=== PATIENT | male | born 1975 | race Caucasian/White ===

== ENCOUNTER 2023-01-18 16:38 | Outpatient (OUT) | payer OTHER, SELFPAY ==
--- NOTE | 2023-01-18 16:40 | XR_ITS ---
The [address] [address] Patient Name: DG REAGAN MRN: [id number] date: 1975 Sex: M Assigned Patient Location: [facility] Current Patient Location: Accession/Order Number: [id number] Exam Date: 01/18/2023 16:48 Report Date: 01/21/2023 07:28 At the request of: RACHEL JIMÉNEZ Procedure: XR knee NOHEMI 4V EXAMINATION: XR knee NOHEMI 4V HISTORY: M 25.562 , M 25.561 BILATERAL KNEE PAIN COMPARISON: No relevant comparison available. FINDINGS: RIGHT FINDINGS: BONES: Normal. No significant arthropathy or acute abnormality. SOFT TISSUES: Negative. No visible soft tissue swelling. OTHER: Negative. LEFT FINDINGS: BONES: Normal. No significant arthropathy or acute abnormality. SOFT TISSUES: Negative. No visible soft tissue swelling. OTHER: Negative. XR/XR knee NOHEMI 4V IMPRESSION: RIGHT CONCLUSION: No acute abnormality LEFT CONCLUSION: No acute abnormality Electronically authenticated by: MIKE PEREZ Date: 01/21/2023 07:28
== END 2023-01-18 16:39 | disposition home or self-care (01) ==
LOC: RAD 16:38
PROVIDERS: Family Provider Family Medicine; PCP Family Medicine; Visit Provider Family Medicine
DX: M25.562 Pain in left knee (principal); M25.561 Pain in right knee
CPT/HCPCS: 73564

== ENCOUNTER 2024-10-02 09:39 | Outpatient (OUT) | payer OTHER, SELFPAY ==
--- OUTSIDE RECORDS SUMMARY | 2024-07-24 06:00 | XMS_ITS ---
Author Organization The [facility] in [place] Address [address] [place] [address] Care Team Providers Care Beeswax Bleacher Name Role Phone Rach Purvis Primary Care Provider Allergies No Known Allergies REASON FOR VISIT -6 Month Follow Up- Medications Medication SIG (Take, Route, Frequency, Duration) Notes Start Date End Date Status Diclofenac Sodium 75 MG 1 tablet Orally Twice a day for 30 days This will REPLACE meloxicam 07/24/2024 Active Social History Tobacco Use: Social History Observation Description Date Details (start date - stop date) Current Smoker NA - NA Tobacco Use/Smoking Question Answer Notes Patient is a current smoker Problems Problem Type SNOMED Code ICD Code Onset Dates Problem Status W/U Status Risk Notes Problem [id number] Bilateral prima ry osteoarthritis of knee (M17.0) Active confirmed Vital Signs Blood pressure systolic 142 mm Hg 07/25/19 25 Blood pressure diastolic 82 mm Hg 025 Heart Rate 85 /min 07/24/2024 Respiratory Rate 16 /min 07/24/2024 Height 71 in 07/24/2024 Weight 178.4 lbs 07/24/2024 BMI 24.88 kg/m2 07/24/2024 Oximetry 97 % 07/24/2024 Encounters Encounter Location Date Provider Diagnosis [facility] [address] [place] [address] 07/24/2024 Rach Purvis Other chronic pain G89.29 ; Hypercalcemia E83.52 and Bilateral primary osteoarthritis of knee M17.0 Assessments Encounter Date Diagnosis (ICD Code) Assessment Notes Treatment Notes Treatment Clinical Notes Section Notes 07/24/2024 Other chronic pain (ICD-10 - G89.29) Stop the meloxicam and start diclofenac 07/24/2024 Hypercalcemia (ICD-10 - E83.52) Will check full fasting labs while here, and if ca still up, will need further eval Unable to get labs today, so will draw at next visit 07/24/2024 Bilateral primary osteoarthritis of knee (ICD-10 - M17.0) Try switching to a different NSAID Plan Of Treatment Medication Medication Name Sig Start Date Stop Date Notes Meloxicam 15 MG 1 tablet Orally Once a day Diclofenac Sodium 75 MG 1 tablet Orally Twice a day for 30 days 07/24/2024 This will REPLACE meloxicam Treatment Notes Assessment Notes Other chronic pain Stop the meloxicam a nd start diclofenac Hypercalcemia Will check full fasting labs while here, and if ca still up, will need further eval Unable to get labs today, so will draw at next visit Bilateral primary osteoarthritis of knee Try switching to a different NSAID Next Appt Details Follow Up: 2-3months, Reason : knee pain/med change/wellness Provider Name:Rach Frank es, 01/01/2025 10:00:00 AM, [address] [place], [address], Progress Notes * Donal TOUSSAINTDOB:1975 (48 yo M)Acc No.[id number]:07/24/2024 Established Patient: Donal COON Provider: Carson Purvis MD :1975 A ge:48 Y S ex:Male Date:07/24/2024 Address:[address] [place], [place] [address] Check In:09:56 AM ESTCheck O ut:11:03 AM EST Subjective: * Chief Complaints: * - 6 Month Follow Up- * HPI: G eneral: patient presents today for 6 month f/u- RM States meloxicam is not really helping anymore Wonders about something different. Will switch to diclofenac 75mg BID Overall doing ok though. * ROS: G eneral/Constitutional: Chills d enies. F atigue d enies. F ever d enies. H EENT: Nasal congestion d enies. S ore throat d enies.?Runny Nose D enies. E ar Pain D enies. C ardiovascular: Lower Extremity Edema d enies. C hest pain d enies.?Palpitations d enies. R espiratory: Cough d enies. S hortness of breath d enies. W heezing d enies. G astrointestinal: Abdominal pain d enies. C onstipation d enies. D iarrhea d enies. N ausea d enies. G enitourinary: Urgency d enies. F requent urination d enies. P ainful urination d enies. M usculoskeletal: Body aches D enies. P ainful joints a dmits - both knees still very sore. W eakness d enies. S kin: Rash d enies. N eurologic: Dizziness d enies. H eadache d enies. ? P sychiatric: Depression d enies. A nxiety d enies. D ifficulty sleeping d enies. * Active Problem List G89.29 Other chronic pain Modified On:07/26/2023W/U Status:confirmed E83.52 Hypercalcemia Modified On:01/24/2024/U Status:confirmed M17.0 Bilateral primary os teoarthritis of knee Modified On:07/24/2024/U Status:confirmed * Medical History: * Surgical History: t eeth removed 2013inguinal hernia 2013 * Hospitalization/Major Diagno stic Procedure: N o Hospitalization History. * Family History: F ather: . M other: alive. 2 sister(s) - healthy. . Father- Heart attack. * Social History: T obacco Use: T obacco Use/Smoking P atsophia is a c urrent smoker * Medications: T akingMeloxicam 15 MG Tablet 1 tablet Orally Once a day Medication List reviewed and reconciled with the patientTaking Meloxicam 15 MG Tablet 1 tablet Orally Once a day Medication List reviewed and reconciled with the patient * Allergies: N .K.D.A.no[Allergies Verified] Objective: * Vitals: W t:178.4lbs, Ht: 71 in, BP:142/82mm Hg, HR:85/min, RR:16/min, BMI:24.88Index, Oxygen sat %:97%, Ht-cm: 180.34 cm, Wt-k.92 kg. * Examination: G eneral Examination: GENERAL APPEARANCE: N o acute distress, Well hydrated, Well Developed. NECK: N dank supple, No thyromegaly, No cervical LAD. LUNGS: C lear to auscultation bilaterally, No wheezes, rales, rhonchi. CARDIO: R egular rate and rhythm, No murmurs, rubs, gallops. ABDOMEN: S oft, nontender, not distended, normal bowel sounds. SKIN: Warm and Dry, No suspicious lesions. EXTREMITIES: No edema. NEUROLOGIC/PSYCHIATRIC: A lert, Oriented,mood and affect appropriate. Assessment: * Assessment: 1. O ther chronic pain - G89.29 (Primary) 2 . H ypercalcemia - E83.52 ? 3 . B ilateral primary osteoarthritis of knee - M17.0 Plan: * Treatment: 2. H ypercalcemia Notes: Will check full fasting labs while here, and if ca still up, will need further eval Unable to get labs today, so will draw at next visit 3. B ilateral primary osteoarthritis of knee Notes: Try switching to a different NSAID * Procedure Codes: * Follow Up: 2 -3months (Reason: knee pain/med change/wellness) * * Sign off status: Completed Visit Status: C HK (Check Out) true * Provider: Carson Purvis MD Date: 0 07/24/2024 Generated for Harry bernal/Ramila/eTransmitting on: 0 10/02/2024 09:44 AM EDT History and Physical Notes * Examination Category Sub-Category Detail Notes Category Not es General Examination GENERAL APPEARANCE: No acute distress, Well hydrated, Well Developed NECK: Neck supple, No thyr omegaly, No cervical LAD CARDIO: Regular rate and rhy thm, No murmurs, rubs, gallops LUNGS: Clear to auscultatio n bilaterally, No wheezes, rales, rhonchi ABDOMEN: Soft, nontender, not distended, normal bowel sounds SKIN: Warm and Dry, No homa picious lesions EXTREMITIES: No edema ENMT: NEUROLOGIC/PSYCHIATRIC: Alert, Oriented, mood and affect appropriate
--- OUTSIDE RECORDS SUMMARY | 2024-07-24 06:58 | XMS_ITS ---
Author Organization The [facility] in [place] Address [address] [place] [address] Care Team Providers Care Wheel And Axle Inspector Name Role Phone Rach Purvis Primary Care Provider REASON FOR VISIT wellness lab orders Encounters Encounter Location Date Provider Diagnosis [facility] [address] [place] [address] 07/24/2024 Rach Purvis Encounter for genera l adult medical examination without abnormal findings Z00.00 Assessments Encounter Date Diagnosis (ICD Code) Assessment Notes Treatment Notes Treatment Clinical Notes Section Notes 07/24/2024 Encounter for general adult medical examination without abnormal findings (ICD-10 - Z00.00) Plan Of Treatment Pending Test Test Name Order Date LIPID PANEL (CHOL/TRIG/HDL/LDL) 07/25/19 25 CMP (COMP MET DOWLING) w/eGFR CKD-EPI 2024 CBC WITH DIFF 07/24/2024 Next Appt Details Provider Name:Rach carcamo, 01/01/2025 10:00:00 AM, [address] [place], [address], Progress Notes * Donal TOUSSAINTDOB:1975 (48 yo M)Acc No.[id number]:07/24/2024 Patient: Maryjane VAZQUEZLITA Donal :1975 A ge:48 Y S ex:Male Address:[address] [place] [address], [address] Subjective: * Chief Complaints: * W ellness lab orders * Medical History: * Surgical History: * Hospitalization/Major Diagno stic Procedure: * Medications: Objective: * Vitals: * Physical Examination: Assessment: * Assessment: 1. E ncounter for general adult medical examination without abnormal findings - Z00.00 (Primary) Plan: * Treatment: * Procedure Codes: * true * Date: Generated for Harry bernal/Ramila/Jasvir on: 0 10/02/2024 09:44 AM EDT
--- OUTSIDE RECORDS SUMMARY | 2024-09-25 06:30 | XMS_ITS ---
Author Organization The [facility] in [place] Address [address] [place] [address] Care Team Providers Care Farm Demonstrator Name Role Phone Rach Purvis Primary Care Provider [phone] REASON FOR VISIT yearly wellness exam Medications Medication SIG (Take, Route, Frequency, Duration) Notes Start Date End Date Status Naproxen 500 MG 1 tablet with food or milk as needed Orally every 12 hrs for 30 days Replacing diclofenac 09/25/2024 Active Diclofenac Sodium 75 MG 1 tablet Orally Twice a day for 30 days This will REPLACE meloxicam 07/24/2024 Active Social History Tobacco Use: Social History Observation Description Date Details (start date - stop date) Current Smoker NA - NA Tobacco Use/Smoking Question Answer Notes Patient is a current smoker Section Notes: SMokes about 1/2ppd Vital Signs Blood pressure systolic 138 mm Hg 09/26/19 25 Blood pressure diastolic 76 mm Hg 025 Heart Rate 84 /min 09/25/2024 Respiratory Rate 16 /min 09/25/2024 Height 71 in 09/25/2024 Weight 181.6 lbs 09/25/2024 BMI 25.33 kg/m2 09/25/2024 Oximetry 98 % 09/25/2024 Encounters Encounter Location Date Provider Diagnosis [facility] [address] [place] [address] 09/25/2024 Rach Purvis Encounter for genera l adult medical examination without abnormal findings Z00.00 ; Bilateral primary osteoarthritis of knee M17.0 ; Other chronic pain G89.29 and Hypercalcemia E83.52 Assessments Encounter Date Diagnosis (ICD Code) Assessment Notes Treatment Notes Treatment Clinical Notes Section Notes 09/25/2024 Encounter for general adult medical examination without abnormal findings (ICD-10 - Z00.00) Please do fasting wellness labs SOON. Drink 2-3 bottles of water before you go 09/25/2024 Bilateral primary osteoarthritis of knee (ICD-10 - M17.0) 09/25/2024 Other chronic pain (ICD-10 - G89.29) 09/25/2024 Hypercalcemia (ICD-10 - E83.52) Plan Of Treatment Medication Medication Name Sig Start Date Stop Date Notes Naproxen 500 MG 1 tablet with food o r milk as needed Orally every 12 hrs for 30 days 09/25/2024 Replacing diclofenac Treatment Notes Assessment Notes Encounter for general adult medical examination without abnormal findings Please do fasting wellness labs SOON. Drink 2-3 bottles of water before you go Next Appt Details Follow Up: 3months, call anita ner if naproxen not helping, Reason: arthritis of knees Provider Name:Rach carcamo, 01/01/2025 10:00:00 AM, [address] [place], [address], Progress Notes * Donal TOUSSAINTDOB:1975 (48 yo M)Acc No.[id number]:09/25/2024 UNLOCKED PROGRESS NOTE Progress Note Patient: Donal COON Provider: Carson Purvis MD :1975 A ge:48 Y S ex:Male Date:09/25/2024 Address:[address] [place], [place] [id number] Check In:10:24 AM ESTCheck O ut:11:37 AM EST Subjective: * Chief Complaints: * 1 . Yearly wellness exam. * HPI: G eneral: patient presents today for yearly wellness exam - Here for wellness. Last visit, we changed the meloxicam to diclofenac. Will try naproxen 500mg BID and if not helping in the next few weeks, will go back to meloxica Still unable to draw labs today, was not hydrated well enough. * ROS: G eneral/Constitutional: Chills d enies. [...] aches D enies. P ainful joints a dmits. W eakness d enies. S kin: Rash d enies. N eurologic: Dizziness d enies. H eadache d enies. ? P sychiatric: Depression d enies. A nxiety d enies. D ifficulty sleeping d enies. * Medical History: C hronic bilat knee pain, Hypercalcemia. * Surgical History: t eeth removed 2012, inguinal hernia 2013. * Family History: F ather: . M other: alive. 2 sister(s) - healthy. . Father- Heart attack. * Social History: T obacco Use: T obacco Use/Smoking P atient is a c urrent smoker S Mokes about 1/2ppd. * Medications: T aking Diclofenac Sodium 75 MG Tablet Delayed Release 1 tablet Orally Twice a day , Notes to Pharmacist: This will REPLACE meloxicam, Medication List reviewed and reconciled with the patient Objective: * Vitals: W t:181.6lbs, Ht: 71 in, BP:138/76mm Hg, HR:84/min, RR:16/min, BMI:25.33Index, Oxygen sat %:98%, Ht-cm: 180.34 cm, Wt-k.37 kg. * Examination: G eneral Examination: GENERAL [...] and affect appropriate. Assessment: * Assessment: 1. E ncounter for general adult medical examination without abnormal findings - Z00.00 (Primary) 2 . B ilateral primary osteoarthritis of knee - M17.0 3 . O ther chronic pain - G89.29 4 . H ypercalcemia - E83.52 Plan: * Treatment: 2. B ilateral primary osteoarthritis of knee Start Naproxen Tablet, 500 MG, 1 tablet with food or milk as needed, Orally, every 12 hrs, 30 days, 60 Tablet, Refills 3, Notes to Pharmacist: Replacing diclofenac. * Follow Up: 3 months, call sooner if naproxen not helping (Reason: arthritis of knees) * * Electronic signature of Jonelle Purvis MD, [id number] on 10/02/2024 at 09:44 AM EDT Sign off status: Pending Visit Status: C HK (Check Out) * Provider: Carson Purvis MD Date: 0 09/25/2024 Generated for Printi ng/Ramila/eTransmitting on: 0 10/02/2024 09:44 AM EDT History [...]
--- OUTSIDE RECORDS SUMMARY | 2024-10-02 09:44 | XMS_ITS | Clinical Summary ---
Author Organization [facility] Address [address] [place] [address] Care Team Providers Care Fitness Consultant Name Role Phone Rach Purvis MD Primary Care Provider Allergies No known active allergies Medications meloxicam (Mobic) 15 MG tablet Take 15 mg by mouth in the morning. Active Active Problems No known active problems Family History Medical History Relation Name Comments Heart attack Father Relation Name Status Comments Father Mother Alive Social History Tobacco Use Types Packs/Day Years Used Date Smoking Tobacco: Former Cigarettes Smokeless Tobacco: Never Tobacco Cessation:Counseling Given: Not Answered Alcohol Use Standard Drinks/Week Comments Yes 0 (1 standard drink = 0.6 oz pur e alcohol) Sex and Gender Information Value Date Recorded Sex Assigned at Male 03/01/2023 1:46 PM EST Legal Sex Male 7:24 PM EDT Gender Identity Male 03/01/2023 1:46 PM EST Sexual Orientation Straight 03/01/2023 1: 46 PM EST Last Filed Vital Signs Vital Sign Reading Time Taken Comments Blood Pressure - - Pulse - - Temperature - - Respiratory Rate - - Oxygen Saturation - - Inhaled Oxygen Concentration - - Weight 78.5 kg (173 lb) 03/08/2023 9:35 AM EST Height 180.3 cm (5' 11 ) 03/08/2023 9:35 AM EST Body Mass Index 24.13 03/08/2023 9:35 AM EST Plan of Treatment Health Maintenance Due Date Last Done Comments CT Colonography 1975 Colonoscopy 1975 Colorectal Cancer Screening 1975 FIT-DNA 1975 FIT 1975 FOBT 1975 Sigmoidoscopy 1975 Influenza Vaccine (Season Ended) 2024 Insurance [facility] Care Teams Fitness Consultant Relationship Specialty Start Date End Date Rach Purvis MD [address] [place] [address] PCP - General Family Medicine 03/08/23
--- OUTSIDE RECORDS SUMMARY | 2024-10-02 09:44 | XMS_ITS | Patient Health Record ---
Author Organization The [facility] in [place] Address [address] [place] [address] Care Team Providers Care Jewel Corner Brushing Machine Operator Name Role Phone Rach Purvis Primary Care Provider Allergies No Known Allergies Results Component Value Reference Range Notes BMP (BASIC MET PANEL - W/GFR ) Reviewed date:07/24/2024 11:10:09 AM Interpretation:Ca 10.9 Performing Lab:[facility], [address] [place], [address] Notes/Report: FACILITY: DR PURVIS - OFFICE [id number] GLUCOSE 100 (74 - 106) MG/DL BUN 16 (9 - 20) MG/DL CREATININE, BLOOD 0.82 (0.66 - 1.25) MG/DL SODIUM 136 (137 - 145) MMOL/L POTASSIUM 4.9 (3.5 - 5.1) MMOL/L CHLORIDE 104 (98 - 107) MMOL/L CARBON DIOXIDE 25 (22 - 30) MMOL/L CALCIUM 10.9 (8.6 - 10.6) MG/DL GFR-NON AFRIC-AMER 100.3 (60.0 - 133.8) ML/M1.7 GFR- AMER 121.3 (60.0 - 161.8) ML/M1.7 Reason For Referral No Information Medications Medication SIG (Take, Route, Frequency, Duration) [...] Answer Notes Patient is a current smoker Alcohol Screen (Audit-C) Question Answer Notes Did you have a drink contain ing alcohol in the past year? Yes How many drinks did you have on a typical day when you were drinking in the past year? 3 or 4 drinks (1 point) How often did you have a dri nk containing alcohol in the past year? Daily or almost daily (4 points) Points 5 Interpretation Positive Section Notes: SMokes about 1/2ppd Problems Problem Type SNOMED Code ICD Code Onset Dates Problem Status W/U Status Risk Notes Problem 22833447 Hypercalcemia (E83.52) Active confirmed Problem 62707905 Other chronic pain (G89.29) Active confirmed Problem [id number] Bilateral prima ry osteoarthritis of knee (M17.0) Active confirmed Vital Signs Heart Rate 84 /min 09/25/2024 Respiratory Rate 16 /min 09/25/2024 Oximetry 98 % 09/25/2024 Blood pressure diastolic 76 mm Hg 09/25/2024 Height 71 in 09/25/2024 Blood pressure systolic 138 mm Hg 09/25/2024 Weight 181.6 lbs 09/25/2024 BMI 25.33 kg/m2 09/25/2024 Encounters Encounter Location Date Provider Diagnosis [address] [address] 01/24/2024 Rach Purvis Other chronic pain G89.29 and Hypercalcemia E83.[address] [address] 07/24/2024 Rach Purvis Other chronic pain G89.29 ; Hypercalcemia E83.52 and Bilateral primary osteoarthritis of knee M17.[address] [address] 09/25/2024 Rach Purvis Encounter for genera l adult medical examination without abnormal findings Z00.00 ; Bilateral primary osteoarthritis of knee M17.0 ; Other chronic pain G89.29 and Hypercalcemia E83.52 [address] [place] [place] [address] 07/24/2024 Rach Purvis Encounter for genera l adult medical examination without abnormal findings Z00.00 Assessments Encounter Date Diagnosis (ICD Code) Assessment Notes Treatment Notes Treatment Clinical Notes Section Notes 01/24/2024 Other chronic pain (ICD-10 - G89.29) Stable, continue meloxicam 01/24/2024 Hypercalcemia (ICD-10 - E83.52) Calcium up to 10.9 with last labs, so will recheck today 07/24/2024 Other chronic pain (ICD-10 - G89.29) Stop the meloxicam and start diclofenac 07/24/2024 Hypercalcemia (ICD-10 - E83.52) Will check full fasting labs while here, and if ca still up, will need further eval Unable to get labs today, so will draw at next visit 09/25/2024 Encounter for general adult medical examination without abnormal findings (ICD-10 - Z00.00) Please do fasting wellness labs SOON. Drink 2-3 bottles of water before you go 09/25/2024 Bilateral primary osteoarthritis of knee (ICD-10 - M17.0) 07/24/2024 Encounter for general adult medical examination without abnormal findings (ICD-10 - Z00.00) 09/25/2024 Other chronic pain (ICD-10 - G89.29) 07/24/2024 Bilateral primary osteoarthritis of knee (ICD-10 - M17.0) Try switching to a different NSAID 09/25/2024 Hypercalcemia (ICD-10 - E83.52) Plan Of Treatment Pending Test Test Name Order Date LIPID PANEL (CHOL/TRIG/HDL/LDL) 07/25/19 25 XR Knee LT (4 views) 01/18/2023 XR Knee RT (4 views) 01/18/2023 CMP (COMP MET DOWLING) w/eGFR CKD-EPI 2024 CBC WITH DIFF 07/24/2024 Next Appt Details Provider Name:Rach carcamo, 01/01/2025 10:00:00 AM, [address] [facility], [place], [address], Insurance Providers Payer Name Payer Address Payer Phone Subscriber Number Group Number Insured Name Patient Relationship to Insured Coverage Start Date Coverage End Date [employer] [address] [address] [place] [address] [phone] [id number] Donal Toussaint Self - patient is the insured 04/12/202 3 Medical (General) History Medical History History ICD Code Chronic bilat knee pain Hypercalcemia Surgical History Surgery Date(Month/Year) inguinal hernia 2013 teeth removed 2012
[2024-10-02 10:15] LABS: Basophils Percent Auto 0.5 % (0.2-2.0); Eosinophils Absolute Auto 0.3 10^3/uL (0.0-0.7); Eosinophils Percent Auto 4.8 % (0.9-7.0); Hematocrit 47.7 % (42.0-54.0); Hemoglobin 16.4 g/dL (14.0-18.0); Immature Granulocytes Abs Auto 0.01 10^3/uL (0.00-0.03); Immature Granulocytes Pct Auto 0.2 % (0.0-0.5); Lymphocytes Absolute Auto 1.7 10^3/uL (1.2-3.8); Mean Corpuscular HGB Conc 34.4 g/dL (29.9-35.2); Mean Corpuscular Hemoglobin 32.9 pg (25.9-34.0); Mean Corpuscular Volume 95.6 fL (80.0-94.0); Mean Platelet Volume 10.4 fL (9.5-13.5); Monocytes Absolute Auto 0.5 10^3/uL (0.3-0.8); Monocytes Percent Auto 9.2 % (1.7-12.0); Neutrophils Percent Auto 54.3 % (43.0-75.0); Platelet Count 181 10^3/uL (150-450); Red Blood Count 4.99 10^6/uL (4.70-6.10); Red Cell Distribution Width 12.7 % (11.0-15.0); White Blood Count 5.5 10^3/uL (4.0-11.0)
[2024-10-02 11:55] LABS: Alanine Aminotransferase 37 U/L (16-63); Albumin Globulin Ratio 1.2; Albumin Level 3.5 g/dL (3.4-5.0); Alkaline Phosphatase 77 U/L (46-116); Anion Gap 11.7; Aspartate Amino Transferase 11 U/L (15-37); BUN Creatinine Ratio 20.7; Bilirubin Total 0.5 mg/dL (0.2-1.0); Calcium 10.3 mg/dL (8.5-10.1); Chloride 100 mmol/L (98-107); Chol HDL Ratio 3.5; Cholesterol 181 mg/dL (<=200); Estimated GFR (African America >60 (>=60 mL/min/1.73m^2); Estimated GFR (Non-African Ame >60 (>=60 mL/min/1.73m^2); Globulin 2.8 g/dL; Glucose 132 mg/dL (74-106); HDL Cholesterol 52 mg/dL (40-60); LDL Cholesterol Calculated 117.2 mg/dL; Potassium 4.7 mmol/L (3.5-5.1); Sodium 136 mmol/L (136-145); Total Protein 6.3 g/dL (6.4-8.2); Triglycerides 59 mg/dL (<=150); VLDL CHOLESTEROL 11.8 mg/dL
== END 2024-10-02 09:40 | disposition home or self-care (01) ==
PROVIDERS: Family Provider Family Medicine; PCP Family Medicine; Visit Provider Family Medicine
DX: Z00.00 Encounter for general adult medical examination without abnormal findings (principal)
CPT/HCPCS: 36415; 80053; 80061; 85025